=== PATIENT | female | born 1995 | race American Indian/Alaskan Native ===

== ENCOUNTER 2017-04-03 21:12 | Inpatient (IN) | payer OTHER ==
[2017-04-03 21:22] VITALS: BMI 36.8
--- NOTE | 2017-04-03 22:21 | OBADHP ---
Datetime: 04/03/2017 22:14 Admit Comment, IP Provider: Patient's 21-year-old 2 para 0 estimated gestational age 39 week s patient presents to labor and delivery for induction of labor. She reports good movement no v aginal bleeding or leakage of fluid. Patient's course complicated by DVT and second trimeste r. Patient also has some a positive father of baby not tested. Past medical history DVT Medications heparin 10,000 units twice a day No known drug allergies Social history denies alcohol tobacco use care significant for DVT, MFM consultation hematology consultation obtained recommendatio n for delivery at 39 weeks. Review of systems patient denies headache chest pain shortness of breath palpitations nausea vomit ing calf Tenderness heat or cold intolerance easy bruisability musculoskeletal or neurological compla ints Vital signs stable afebrile Physical exam see notes Intrauterine at 39 weeks care significant for DVT MF recommended induction of labor at 39 weeks. Vertex presentation, adequate pelvis, estimated weight 7-1/2 pounds Anticipate normal vaginal delivery Patient received Lovenox 60 mg Pelvic Type - PN: Adequate Extremities - PN: Normal Abdomen - PN: Normal Back - PN: Normal Breast - PN: Normal Lungs - PN: Normal Heart - PN: Normal Thyroid - PN: Normal Neurologic - PN: Normal HEENT - PN: Normal General - PN: Normal FHR - Baseline A Provider: 145 Gestation - Est Wks by US: 39.0 Pool Provider: Negative Vital Signs Provider: Reviewed NICHD Variability Prov Fetus A: Moderate 6-25bpm NICHD Accel Fetus A IP Provider: 10X10 FHR Category Provider Fetus A: Category I NICHD Decel Fetus A IP Provider: None Dilatation, Provider: 1 Effacement, Provider: 75 Station, Provider: -2 Genitourinary Exam: Normal DTRs - PN: Normal IP Adm Impression: Term, intrauterine ; No Active Labor IP Admit Plan: Admit to unit
[2017-04-03 23:57] LABS: BASO # 0.1 K/uL (0.0-0.2); BASO % 0.3 % (0.0-2.0); EOS # 0.1 K/uL (0.0-0.7); EOS % 0.4 % (0.0-4.0); HEMOGLOBIN 10.5 g/dL (12.0-16.0); LYMPH # 2.9 K/uL (1.0-4.3); LYMPH % 16.8 % (20.0-40.0); MEAN CELL VOLUME 84.1 fl (81.0-99.0); MEAN CORPUSCULAR HEMOGLOBIN 27.8 pg (27.0-31.0); MEAN CORPUSCULAR HGB CONC 33.1 g/dL (33.0-37.0); MEAN PLATELET VOLUME 8.1 fl (7.2-11.7); MONO # 1.4 K/uL (0.0-0.8); NEUT # 12.9 K/uL (1.8-7.0); NEUT % 74.5 % (50.0-75.0); NRBC % 0.2 % (0.0-0.0); RBC 3.78 Mil/uL (3.80-5.20); RED CELL DISTRIBUTION WIDTH 16.8 % (11.5-14.5); WHITE BLOOD COUNT 17.4 K/uL (4.8-10.8)
[2017-04-04 00:22] LABS: PROTHROMBIN TIME 10.6 Seconds (9.8-13.1)
[2017-04-04 00:35] VITALS: RESP 18
[2017-04-04] MEDS: Lactated Ringer's 1,000 ML IV SCH ×5 (01:00→21:00)
[2017-04-04] MEDS ORDERED: Nalbuphine 20 mg/ml Inj (1 ml) IVP PRN (03:15)
--- NOTE | 2017-04-04 14:38 | OBPN ---
Datetime: 04/04/2017 14:29 IP Progress Impression: Reassuring heart rate IP Procedures: Sterile Vag Exam IP Progress Plan: Induction Contraction Comments Provider: Irritability FHR - Baseline A Provider: 140s IP Progress Note Comment: Continue induction of labor with Cytotec. Discussed with patient patient q uestions answered. Hold heparin at this time. Maternal well-being and well-being reassuring at this time. Vital Signs Provider: Reviewed; Within Normal Limits NICHD Accel Fetus A IP Provider: 15X15 FHR Category Provider Fetus A: Category I NICHD Variability Prov Fetus A: Moderate 6-25bpm Dilatation, Provider: FT Effacement, Provider: 50 Station, Provider: -3 NICHD Decel Fetus A IP Provider: None Datetime: 04/03/2017 22:14 Pool Provider: Negative Gestation - Est Wks by US: 39.0
--- NOTE | 2017-04-04 17:50 | OBPN ---
Datetime: 04/04/2017 17:46 IP Progress Impression: Reassuring heart rate IP Procedures: Sterile Vag Exam IP Progress Plan: Continue present management; Augmentation Membranes, Provider: Ruptured Amniotic Fluid Color, Provider: Clear Contraction Comments Provider: occasional FHR - Baseline A Provider: 130s IP Progress Note Comment: Patient reports leaking fluid. Amniotic fluid seen on exam. Maternal well- being and well-being reassuring at this time. Plan to start Pitocin augmentation 3 hours after last Cytotec administration. Discussed plan with patient and all patient questions answered. Vital Signs Provider: Reviewed; Within Normal Limits FHR Category Provider Fetus A: Category I NICHD Variability Prov Fetus A: Moderate 6-25bpm Dilatation, Provider: 1-2 Effacement, Provider: 90 Station, Provider: -2 NICHD Decel Fetus A IP Provider: None
[2017-04-04] MEDS ORDERED: Oxytocin 30 UNITS in Sodium Chloride 0.9% 500 ML IV SCH (18:45)
[2017-04-04] MEDS ORDERED: Fentanyl/Bupivacaine HCl 250 ML EPI ONE (19:17)
[2017-04-04 20:05] LABS: INR 0.9 (0.9-1.2); PARTIAL THROMBOPLASTIN TIME 25.6 Seconds (25.6-37.1); PROTHROMBIN TIME 10.4 Seconds (9.8-13.1)
[2017-04-04] MEDS ORDERED: Lidocaine 1% Inj (20ml) ONE (22:12)
[2017-04-05] MEDS ORDERED: Benzocaine/Menthol SPRAY TOP PRN (00:01)
[2017-04-05] MEDS ORDERED: Oxycodone/Acetaminophen 5/325 mg Tab PO PRN ×2 (00:01)
--- NOTE | 2017-04-05 00:23 | OBDS ---
DELIVERY PERSONNEL Delivery Doctor: Tammie Bennett MD Bit Tripoler: Rich Martinez RN, Lor Esquivelck RN MATERNAL INFORMATION Delivery Anesthesia: Local; Epidural Medications in Delivery: Pitocin Maternal Complications: None Provider Comments: Normal spontaneous vaginal delivery. Patient delivered viable female with Apgars of 9 and 9 at one and 5 minutes respectively. P lacenta delivered spontaneously. Laceration repaired, as above. Uterus firm and appropriately hemosta tic following delivery. Patient tolerated delivery and repair well. No complications. Estimated blood loss 300 mL LABOR SUMMARY EDC: 04/11/2017 00:00 No. Babies in Womb: 1 LABOR INFORMATION Cervical Ripening Agents: Cytotec @ 50 Group B Beta Strep: Negative Steroids Given: None Reason Steroids Not Administered: Not Applicable MEMBRANES Membranes Rupture Method: Spontaneous Amniotic Fluid Color: Clear Amniotic Fluid Amount: Small Amniotic Fluid Odor: Normal STAGES OF LABOR Stage 3 hrs: 0 Stage 3 min: 3 VAGINAL DELIVERY Episiotomy: None Laceration Extension: First Degree Laceration Type: Perineal Laceration Repair Note: First-degree midline perineal laceration. 1% lidocaine. Laceration repaired with 2. 0 Rapide. Patient tolerated repair well. BABY A INFORMATION Delivery Date/Time: 04/04/2017 22:29 Method of Delivery: Vaginal Born in Route : No : N/A Forceps: N/A Vacuum Extraction: N/A Shoulder Dystocia : No SHOULDER DYSTOCIA BABY A Delivery Date/Time: 04/04/2017 22:29 PRESENTATION/POSITION BABY A Presentation: Cephalic Cephalic Presentation: Vertex Breech Presentation: N/A PLACENTA INFORMATION BABY A Placenta Delivery Time : 04/04/2017 22:32 Placenta Method of Delivery: Spontaneous Placenta Status: Delivered SCORES BABY A Heart Rate 1 min: >100 bpm Resp Effort 1 min: Good Cry Reflex Irritability 1 min: Cough or Sneeze or Pulls Away Muscle Tone 1 min: Active Motion Color 1 min: Body [place], Extremities Blue Resuscitation Effort 1 min: Tactile Stimulation SCORE 1 MIN: 9 Heart Rate 5 min: >100 bpm Resp Effort 5 min: Good Cry Reflex Irritability 5 min: Cough or Sneeze or Pulls Away Muscle Tone 5 min: Active Motion Color 5 min: Body [place], Extremities Blue Resuscitation Effort 5 min: N/A SCORE 5 MIN: 9 INFANT INFORMATION BABY A Gestational Age at Delivery: 39.0 Gestational Status: Term Outcome : Liveborn Infant Condition : Stable Infant Sex: Female IDENTIFICATION/MEDS BABY A ID Band Number: [id number] ID Band Location: Left Leg; Left Arm
[2017-04-05 07:21] LABS: HEMOGLOBIN 10.2 g/dL (12.0-16.0); MEAN CELL VOLUME 83.7 fl (81.0-99.0); MEAN CORPUSCULAR HEMOGLOBIN 27.3 pg (27.0-31.0); MEAN CORPUSCULAR HGB CONC 32.6 g/dL (33.0-37.0); RBC 3.74 Mil/uL (3.80-5.20); RED CELL DISTRIBUTION WIDTH 16.8 % (11.5-14.5); WHITE BLOOD COUNT 21.8 K/uL (4.8-10.8)
[2017-04-05 08:09] LABS: GFR AFRICAN-AMERICAN > 60; GFR NON-AFRICAN AMERICAN > 60
[2017-04-05] MEDS: Multivitamin With Minerals Tab PO SCH (09:12)
[2017-04-05] MEDS ORDERED: Enoxaparin 40 mg Syringe SC SCH (10:00)
--- NOTE | 2017-04-05 10:36 | OBPPN ---
Datetime: 04/05/2017 10:31 PP Pain Prov: Within normal limits PP Nausea Prov: Denies PP Abdomen/Uterus Prov: Normal PP Lochia Prov: Normal PP Extremities Prov: Normal PP Impression Prov: Normal progression PP Plan Prov: Continue present management PP Progress Note Prov: PPD 1 s/p , doing well, bottle feeding Will start lovenox 150 mg Continue current management Vital Signs Provider PP: Reviewed
[2017-04-05] MEDS: Enoxaparin 150 mg Syringe SC SCH (11:20)
--- NOTE | 2017-04-06 09:37 | OBPPN ---
Datetime: 04/06/2017 09:35 PP Pain Prov: Within normal limits PP Nausea Prov: Denies PP Flatus Prov: Yes PP Breasts Prov: Normal PP Heart Prov: Normal PP Lungs Prov: Normal PP Abdomen/Uterus Prov: Normal PP Lochia Prov: Normal PP Vulva/Perineum Prov: Normal PP CVA Tenderness Prov: Normal PP Extremities Prov: Normal PP Comments Phys Exam Prov: Fundus firm under umbilicus PP Impression Prov: Normal progression PP Plan Prov: Continue present management PP Progress Note Prov: Patient denies CP, no SOB, no n/v, tolerating po diet, abdominal pain tolerab le with meds, mild lochia A/P PPD#2 1. discharge home 2. Discharge instructions reviewed IP PP Procedures: None Vital Signs Provider PP: Reviewed; Within Normal Limits
--- NOTE | 2017-04-06 09:37 | OBDCSUM ---
Datetime: 04/06/2017 09:36 Follow up at, Provider: OB Discharge Diagnosis, Provider: Term Delivered Follow up in weeks, Provider: 6 wks
[2017-04-06] MEDS: Multivitamin With Minerals Tab PO SCH (09:59)
[2017-04-06] MEDS: Enoxaparin 150 mg Syringe SC SCH (12:22)
[2017-04-06 18:38] VITALS: BP 106/76; PULSE 77; TEMP 98.3; O2SAT 99
== END 2017-04-06 14:14 | disposition home or self-care (01) | DRG 373 ==
LOC: H.L&D 21:33 → UNDOADMIN 21:33 → H.L&D 21:36 → H.OB/GYN 04-05 17:28
PROVIDERS: ADMIT Obstetrics & Gynecology Gynecology; ATTEND Obstetrics & Gynecology Gynecology
PROC: 4A1HXCZ Monitoring of Products of Conception, Cardiac Rate, External Approach (ICD-10-PCS; 2017-04-03)
PROC: 10E0XZZ Delivery of Products of Conception, External Approach (ICD-10-PCS; principal; 2017-04-04)
PROC: 0HQ9XZZ Repair Perineum Skin, External Approach (ICD-10-PCS; 2017-04-04)
DX: O70.0 First degree perineal laceration during delivery (principal); Z37.0 Single live birth; Z3A.39 39 weeks gestation of pregnancy; Z86.718 Personal history of other venous thrombosis and embolism